=== PATIENT | female | born 1965 | race Caucasian/White ===

== ENCOUNTER 2023-01-14 20:51 | Emergency (ER) | payer MEDICAID ==
[~2023-01-14] VITALS: Ht 152.4 cm; Wt 90.7 kg
[2023-01-14 21:07] VITALS: BP 136/79; PULSE 68; RESP 16; TEMP 97; O2SAT 97
--- NOTE | 2023-01-14 21:14 | NUR ---
TO LOBBY FOLLOWING TRIAGE. UNABLE TO GIVE UA AT THIS TIME
[2023-01-14 21:30] VITALS: O2SAT 97
[2023-01-14 22:34] LABS: BASOPHILS # (AUTO) 0.1 K/uL (0.00-0.22); BASOPHILS % (AUTO) 0.6 % (0.0-2.0); EOSINOPHILS # (AUTO) 0.2 K/uL (0-0.4); EOSINOPHILS % (AUTO) 2.5 % (0.0-4.0); HEMOGLOBIN 12.3 g/dL (12.0-16.0); LYMPHOCYTES # (AUTO) 3.3 K/uL (2.5-16.5); LYMPHOCYTES % (AUTO) 37.6 % (20.5-51.1); MEAN CORPUSCULAR HEMOGLOBIN 30 pg (27-31); MEAN CORPUSCULAR HGB CONC 33 g/dL (33-37); MEAN CORPUSCULAR VOLUME 89.7 fL (80-94); MONOCYTES # (AUTO) 0.5 K/uL (0.8-1.0); MONOCYTES % (AUTO) 5.3 % (1.7-9.3); NEUTROPHILS # (AUTO) 4.7 K/uL (1.8-7.7); PLATELET COUNT (AUTO) 271 K/uL (140-450); RED BLOOD CELL COUNT(AUTO) 4.13 MIL/uL (4.20-5.40); RED CELL DISTRIBUTION WIDTH 14.6 % (11.6-13.7); WHITE BLOOD COUNT (AUTO) 8.7 K/uL (4.8-10.8)
--- NOTE | 2023-01-14 22:34 | NUR ---
PT TAKEN TO BED 6
--- NOTE | 2023-01-14 22:38 | NUR ---
Patient being evaluated by physician at bedside.
[2023-01-14] MEDS ORDERED: KETOROLAC 30 MG/ML VIAL IM ONE (22:45)
--- NOTE | 2023-01-14 22:46 | NUR ---
57 Y/O F BIB self from home c/c of LLQ and L pelvic pain xsunday 8 with ND denies vomiting. pt stated she took tylenol and ibuprofen with little relief. pt A&Ox4, skin intact, ambulatory with cane. pmh-c section nka
[2023-01-14 22:54] LABS: ALBUMIN 3.4 g/dL (3.4-5.0); ANION GAP 7.8 (8-16); CARBON DIOXIDE 31.2 mmol/L (21-32); CREATININE 0.7 mg/dL (0.6-1.3); TOTAL BILIRUBIN 0.2 mg/dL (0.0-1.0)
[2023-01-15 01:26] LABS: APPEARANCE,URINE CLEAR (CLEAR); BILIRUBIN,URINE NEGATIVE (NEGATIVE); BLOOD, URINE TRACE-I (NEGATIVE); COLOR,URINE YELLOW (YELLOW); LEUKOCYTE ESTERASE ,URINE 2+ (NEGATIVE); NITRITE, URINE NEGATIVE (NEGATIVE); UGLUCOSE NEGATIVE (NEGATIVE)
[2023-01-15] MEDS ORDERED: BEN10 PO (01:35)
[2023-01-15] MEDS ORDERED: METR-435 PO (01:35)
[2023-01-15] MEDS ORDERED: NAPR-54 PO (01:35)
[2023-01-15] MEDS ORDERED: CIPR500T4 PO (01:35)
[2023-01-15] MEDS ORDERED: HYDROcodone/APAP 5/325 MG 1 TAB TAB PO ONE (01:40)
[2023-01-15] MEDS ORDERED: DICYCLOMINE 20 MG/2 ML VIAL IM ONE (01:40)
--- NOTE | 2023-01-15 02:15 | NUR ---
Patient discharged with v/s stable. Written and verbal after care instructions given and explained. Patient alert, oriented and verbalized understanding of instructions. Ambulatory with steady gait. All questions addressed prior to discharge. ID band removed. Patient advised to follow up with PMD. Rx of bentyl, cipro, metronidazole, and naproxen given. Opportunity to ask questions provided and answered.
== END 2023-01-15 02:15 | disposition home or self-care (01) ==
LOC: MED 20:51
DX: K57.92 Diverticulitis of intestine, part unspecified, without perforation or abscess without bleeding (principal); Z79.899 Other long term (current) drug therapy
CPT/HCPCS: 36415; 74176; 80053; 81001; 83690; 85025; 87086; 96372; 99285; J0500; J1885

== ENCOUNTER 2023-06-17 21:20 | Emergency (ER) | payer MEDICAID, OTHER ==
[~2023-06-17] VITALS: Ht 152.4 cm; Wt 91.2 kg
[~2023-06-17 21:20] MED LIST: BEN10 PO; CIPR500T4 PO; METR-435 PO; NAPR-54 PO
[2023-06-17 21:27] VITALS: BP 133/82; PULSE 72; RESP 18; TEMP 97.8; O2SAT 96
[2023-06-17 22:05] VITALS: BP 130/60; PULSE 66; RESP 18; TEMP 97.8; O2SAT 96
[2023-06-17] MEDS ORDERED: guaiFENesin 20 MG/ML UDC PO ONE (22:25)
[2023-06-17] MEDS ORDERED: predniSONE 20 MG TAB PO ONE (22:25)
[2023-06-17] MEDS ORDERED: IBUPROFEN 600 MG TAB PO ONE (22:45)
[2023-06-17 22:59] LABS: FLU A ANTIGEN negative (NEGATIVE); FLU B ANTIGEN NEGATIVE (NEGATIVE)
[2023-06-17] MEDS ORDERED: ACET-10509 PO (23:19)
[2023-06-17] MEDS ORDERED: PROM118S5 PO (23:19)
[2023-06-17] MEDS ORDERED: PRED20TA5 PO (23:19)
== END 2023-06-18 00:20 | disposition home or self-care (01) ==
LOC: MED 21:20
DX: J45.901 Unspecified asthma with (acute) exacerbation (principal); J98.9 Respiratory disorder, unspecified; B97.89 Other viral agents as the cause of diseases classified elsewhere; Z20.822 Contact with and (suspected) exposure to COVID-19; R11.2 Nausea with vomiting, unspecified; E11.9 Type 2 diabetes mellitus without complications; I10 Essential (primary) hypertension; Z79.899 Other long term (current) drug therapy; Z79.1 Long term (current) use of non-steroidal anti-inflammatories (NSAID); Z79.2 Long term (current) use of antibiotics
CPT/HCPCS: 71045; 87426; 87804; 99284; J7512; Q0092

== ENCOUNTER 2023-07-10 21:41 | Emergency (ER) | payer OTHER ==
[~2023-07-10] VITALS: Ht 160 cm; Wt 72.6 kg
[~2023-07-10 21:41] MED LIST changes: +ACET-10509 PO; +PRED20TA5 PO; +PROM118S5 PO
[2023-07-10 21:50] VITALS: BP 125/71; PULSE 81; RESP 18; TEMP 97.9; O2SAT 97
[2023-07-10 22:30] LABS: FLU A ANTIGEN negative (NEGATIVE); FLU B ANTIGEN NEGATIVE (NEGATIVE)
[2023-07-10] MEDS ORDERED: ALBUTEROL SULFATE/IPRATROPIU 3 ML SOL IH ONE (22:35)
[2023-07-10] MEDS ORDERED: KETOROLAC 30 MG/ML VIAL IM ONE (22:35)
[2023-07-10 22:43] VITALS: PULSE 74; RESP 19; O2SAT 98
[2023-07-11] MEDS ORDERED: ROB PO (00:02)
[2023-07-11] MEDS ORDERED: AZIT250T4 PO (00:02)
[2023-07-11] MEDS ORDERED: ALBU0.0912 IH (00:02)
== END 2023-07-11 00:10 | disposition home or self-care (01) ==
LOC: MED 21:41
DX: J20.9 Acute bronchitis, unspecified (principal); Z20.822 Contact with and (suspected) exposure to COVID-19; J45.909 Unspecified asthma, uncomplicated; I10 Essential (primary) hypertension; E11.9 Type 2 diabetes mellitus without complications; Z79.4 Long term (current) use of insulin; Z79.899 Other long term (current) drug therapy
CPT/HCPCS: 71045; 87426; 87804; 94640; 96372; 99284; J1885